=== PATIENT | male | born 2000 | race Caucasian/White ===

== ENCOUNTER 2024-11-06 13:44 | Outpatient (CLI) | payer SELFPAY ==
--- NOTE | 2024-11-06 13:50 | US_ITS ---
WS: [id number] Exam: US breast LT limited* [id number] Date/Time of Exam: 11/06/2024 2:08 PM Reason For Exam: BREAST SWELLING The left retroareolar area is targeted for ultrasound evaluation. Comparison images of the retroareolar area of the RIGHT breast were also included. There was no sign of suspicious solid mass or nodule in the retroareolar area of the LEFT breast. There were no cysts identified. US/US breast LT limited* [id number] IMPRESSION: 1. No suspicious ultrasound finding in the retroareolar area of the LEFT breast .
== END 2024-11-06 13:45 | disposition home or self-care (01) ==
PROVIDERS: Visit Provider Nurse Practitioner Family
DX: N63.20 Unspecified lump in the left breast, unspecified quadrant (principal)
CPT/HCPCS: 76642